=== PATIENT | male | born 1970 | race Asian ===

== ENCOUNTER 2019-10-28 23:20 | Emergency (ER) | payer OTHER, MEDICAID ==
[~2019-10-28] VITALS: Ht 165.1 cm; Wt 54.4 kg
--- NOTE | 2019-10-28 23:20 | NUR ---
PT TAKEN TO BED 2 BY EMS VIA GURNEY.
[2019-10-28 23:21] VITALS: BP 150/94
--- NOTE | 2019-10-28 23:25 | NUR ---
ERMD AT BEDSIDE
--- NOTE | 2019-10-28 23:30 | NUR ---
49 Y/O MALE [facility] NAME [facility] C/O NON COMPLIANT WITH HIS MEDICATIONS. PT IS CONFUSED. GCS 13. PT STATES HE HAS PAIN "ALL OVER." VITAL SIGNS STABLE. HX- DM TYPE 2, HTN, AFIB, RT SIDED WEAKNESS, LT VENTRICLE THROMBOSIS, HYDRONEPHROSIS, EDEMA EARNEST LOWER LEGS, GLUTEAL ABSCESS TOOK TO REGINA AND DRAIN UNKNOWN DATE
[2019-10-28] MEDS ORDERED: METF1000 PO (23:56)
[2019-10-28] MEDS ORDERED: ASPI-1822 PO (23:56)
[2019-10-28] MEDS ORDERED: APIX5TAB PO (23:56)
[2019-10-28] MEDS ORDERED: AMAN100S37 PO (23:56)
[2019-10-28] MEDS ORDERED: SULF-59 PO (23:56)
[2019-10-28] MEDS ORDERED: ATOR40TA PO (23:56)
[2019-10-28] MEDS ORDERED: TOP100 PO ×2 (23:56)
[2019-10-28] MEDS ORDERED: AMIO100T3 PO (23:56)
[2019-10-28] MEDS ORDERED: AMIODIPINE PO (23:56)
[2019-10-28] MEDS ORDERED: ZOLP10TA1 PO (23:56)
[2019-10-28] MEDS ORDERED: ALBUTEROL INHALER HHN (23:56)
[2019-10-28] MEDS ORDERED: SACU1TAB PO (23:56)
[2019-10-28] MEDS ORDERED: GABA400C PO (23:56)
[2019-10-28] MEDS ORDERED: FURO-570 PO (23:56)
[2019-10-28] MEDS ORDERED: GLIP5TAB4 PO (23:56)
[2019-10-28] MEDS ORDERED: CLON0.3T23 PO (23:56)
[2019-10-28] MEDS ORDERED: CARV3.12 PO (23:56)
--- NOTE | 2019-10-29 00:19 | NUR ---
MINA CUTLER FOR B/C [facility] CALLED AND INFORMING PT D/C AND WILL RETURN BACK TO THEIR FACILITY VIA AMBULANCE RUN. MINA CUTLER ATTEMPT TO REFUSE THE PT AND WILL CALL ALFRED CUTLER FOR THIS PT IN THE SAME B/C.
--- NOTE | 2019-10-29 00:20 | NUR ---
[facility] CALLED AND SPOKE TO MINA CUTLER/ AND ALFRED CUTLER INFORMING, THE PT IS D/C AND WILL RETURN BACK TO THEIR FACILITY VIA AMBULANCE GUNEY. ON PROCESS CALLING AMBULANCE FOR TRANSFER.
--- NOTE | 2019-10-29 00:21 | NUR ---
B/C [facility] # [phone]
--- NOTE | 2019-10-29 00:40 | NUR ---
[facility] ETA 0700 AM
--- NOTE | 2019-10-29 01:47 | NUR ---
PT ASKING FOR FOOD. APPLESAUCES GIVEN. 1:1 FEEDER. PT TOLERATED WELL. ERMD AWARE. WILL CONTINUE TO MONITOR.
--- NOTE | 2019-10-29 03:14 | NUR ---
PT RESTING IN BED, VSS, RESPIRATIONS EVEN AND UNLABORED. CHEST RISE IS SYMMETRICAL. SAFETY PRECAUTIONS IN PLACE. WILL CONTINUE TO MONITOR.
--- NOTE | 2019-10-29 05:30 | NUR ---
PT RESTING IN BED, EYES CLOSED, RESPIRATIONS EVEN AND UNLABORED. CHEST RISE IS SYMMETRICAL. SIDE UP RAILS UPX1. BED IN LOWEST POSITION. VSS. WILL CONTINUE TO MONITRO.
[2019-10-29 06:46] VITALS: BP 146/83
--- NOTE | 2019-10-29 06:46 | NUR ---
Patient discharged with v/s stable. Written and verbal after care instructions given and explained. Patient alert, oriented and verbalized understanding of instructions. Ambulance Transport with to snf. All questions addressed prior to discharge. ID band removed. Patient advised to follow up with PMD. Opportunity to ask questions provided and answered.
== END 2019-10-29 06:46 ==
LOC: MED 23:20
DX: I11.9 Hypertensive heart disease without heart failure (principal); E11.9 Type 2 diabetes mellitus without complications; Z79.899 Other long term (current) drug therapy; Z79.84 Long term (current) use of oral hypoglycemic drugs; Z79.82 Long term (current) use of aspirin
CPT/HCPCS: 99281